=== PATIENT | female | born 1955 | race African-American/Black ===

== ENCOUNTER → 2016-07-04 | Outpatient (CLI) | payer OTHER ==
[~2016-07-04] MED LIST: IOHEXOL 180 MG/ML 10 ML VIAL. ONE; LIOT5TAB3 PO; METF500T4 PO; MULT-98 PO; PROG200C2 PO; THYR65TA PO; methylPREDNISolone ACETATE 40 MG/ML VIAL. ONE; methylPREDNISolone ACETATE 80 MG/ML VIAL. ONE
--- NOTE | 2016-07-05 00:48 | PAIN ---
DATE OF SERVICE: 07/04/2016 INITIAL CONSULTATION CHIEF COMPLAINT: Neck and left upper extremity pain. HISTORY OF PRESENT ILLNESS: This is a 61-year-old female who presents with history of pain for about 2 months, increasing gradually in the base of the neck and shoulders after she was lifting a heavy box while helping a friend do some moving, the box was very heavy. She reports she had significant pain at the time of the injury occurred and has been present ever since. The patient reports it is slightly better after some chiropractic manipulations that she had and her neck is more mobile now, but still significant pain in the base of the neck, left shoulder, left upper back, left upper arm, forearm and into the hand with tingling mostly in the 1st and 2nd fingers. The patient reports it is sharp and throbbing, numbness radiating into the left arm. No radiation onto the right arm. It is intermittent in intensity, but always present. The patient reports it does not awaken her from sleep at night, however, does not affect any bowel or bladder control and does not affect her ability to walk. The patient reports that it is a more of a tingling and numbness now. The pain is less as it was previously. The patient reports disability rating from 0 to 10, 10 being the worst, is a 6 with family and home responsibilities, social activity, occupation and self care, 8 with recreation, 7 with life support activities, 2 with sexual behavior. The patient did try Medrol Dosepak from her primary physician, which helped while she took it, but was not long lasting. She did have an MRI scan of the cervical spine dated 06/16/2016 showing degenerative changes without specific herniations or central spinal stenosis, some neural foraminal stenosis seen at C4-C5 with moderate left side articular facet disease. C5-C6 has a small broad-based disk bulge and some left-sided neural foraminal narrowing as well, C6-C7 also moderate sized broad-based disk bulge with associated neural foraminal narrowing and bilateral uncovertebral disease as well. The patient reports no complete loss of motor function, but some fatigability with left arm with repetitive use of motion or typing, but no loss of function. PAST MEDICAL HISTORY: Significant for type 2 diabetes, cigarette smoking, hypercholesterolemia, diverticulitis, arthritis. PREVIOUS SURGERY: Includes thyroidectomy. CURRENT MEDICATIONS: Include levothyroxine, metformin, progesterone, multivitamins, and natural thyroid supplements. ALLERGIES: The patient has no known drug allergies. FAMILY HISTORY: Significant for diabetes. SOCIAL HISTORY: The patient drinks about 1 alcoholic beverage a day, smokes about 5 cigarettes a day and has for 11 years. The patient is single, lives locally in [place], [place] and works as a computer lab assistant. REVIEW OF SYSTEMS: The patient's review of systems is positive for those items mentioned in history of present illness. All systems are reviewed and otherwise negative. It is complete, full and well documented on the patient's chart. PHYSICAL EXAMINATION: VITAL SIGNS: Today, the patient's blood pressure is 102/70, pulse 71, respirations 18, temperature 98.6 degrees Fahrenheit, height is 5 feet 1 inch, weight is 129 pounds. GENERAL: The patient is awake, alert, oriented, appropriate, very pleasant demeanor. HEENT: Shows normocephalic, atraumatic. Extraocular movements are intact and symmetrical. Oral cavity shows mucous membranes moist and pink. Dentition is intact. NECK: Shows anterior throat supple without palpable lymphadenopathy noted. Swallow reflex is symmetrical. CHEST: Shows normal on inspection. Breath sounds are clear to auscultation bilaterally. HEART: Shows S1 and S2 clear. ABDOMEN: Soft, nontender, nondistended. No palpable organomegaly is noted. No rebound or guarding demonstrated. BACK: The patient's back shows spine grossly midline. Cervical paraspinous musculature shows normal cervical lordotic curvature, normal thoracic kyphotic curvature, and lumbar lordotic curvature. No previous bruises, lesions, rashes or scars are noted. Cervical paraspinous musculature shows some moderate tenderness with palpation in the middle and lower aspect of the posterior cervical musculature on the left more than the right, but is symmetrical. The patient shows good rotational motion both laterally greater than 45 degrees right and left as well as full extension, full forward flexion with some minor pain reported in the base of the neck with extension, but not with forward flexion or right and left lateral rotation. EXTREMITIES: The patient's upper extremities show deep tendon reflexes at 2+ in the biceps and triceps tendons are equal. Motor exam is strong with brim edge trimmer strength rated at 5/5 as is biceps and triceps flexion are strong and equal. Peripheral pulses are 2+ radial distribution. No peripheral edema is noted. No clubbing, no cyanosis. Upper extremities are warm and dry to touch, equal in color and appearance. Shoulder shrug is strong and intact without loss of strength on resistance with some minor pain reported in the base of the neck and left posterior shoulder with resistance, but no loss of strength. This is true with abduction of the shoulder to 90 degrees as well. Minor pain reported in the posterior aspect of the deltoid and the scapula with resistance, but without loss of strength. IMPRESSION: 1. This is a 61-year-old female with approximate 2-month history of pain after lifting heavy objects while moving a friend with significant radicular qualities in left upper extremity at this time. 2. MRI scan as noted. 3. Type 2 diabetes. 4. Cigarette smoking. 5. Arthritis. PLAN: Options were discussed with the patient including conservative medical management, physical therapy, interventional techniques. She elected to proceed with interventional techniques. We discussed a cervical epidural steroid injection using description as well as anatomical models to describe the procedure. Risks were then discussed including, but not limited to bleeding, infection, possibility of epidural hematoma, subsequent neurologic compromise, dural puncture, headaches, spinal cord and/or nerve damage, side effects of steroid medication and poor results regarding pain control. The patient understands and wishes to proceed. The patient will return to clinic in approximately 2 weeks for followup, was counseled on return appointment, activity level and side effects to be aware of. DIAGNOSIS: Cervical radiculopathy with cervical degenerative disk disease. PROCEDURE: Cervical epidural steroid injection in the translaminar approach at C6-C7 level using fluoroscopic guidance and local anesthetic under sterile prep and drape. Medication injected is 120 mg Depo-Medrol plus 5 mL of preservative-free normal saline and 2 mL Isovue for contrast. Condition at discharge is stable. The patient tolerated procedure well, had no complications. JUSTIN FU MD DR: AIDA/miguel ángel JOB#: [id number] / [id number] Jassi Howell
== END | disposition home or self-care (01) ==
LOC: PNCL 10:15
PROVIDERS: ATTEND Anesthesiology
DX: M50.10 Cervical disc disorder with radiculopathy, unspecified cervical region (principal); E11.9 Type 2 diabetes mellitus without complications; F17.200 Nicotine dependence, unspecified, uncomplicated; M19.90 Unspecified osteoarthritis, unspecified site; E78.00 Pure hypercholesterolemia, unspecified
CPT/HCPCS: 62321; J1030; J1040

== ENCOUNTER → 2016-07-18 | Outpatient (CLI) | payer OTHER ==
[~2016-07-18] MED LIST changes: -IOHEXOL 180 MG/ML 10 ML VIAL. ONE; -methylPREDNISolone ACETATE 40 MG/ML VIAL. ONE; -methylPREDNISolone ACETATE 80 MG/ML VIAL. ONE
--- NOTE | 2016-07-19 01:40 | PAIN ---
DATE OF SERVICE: 07/18/2016 DIAGNOSES: Cervical radiculopathy with cervical degenerative disk disease. HISTORY OF PRESENT ILLNESS: This is a 61-year-old female who returns for followup status post cervical epidural steroid injection x 1. The patient reports about 60% improvement in the spasms in her left arm and only has some numbness in the tips of the fingers now on her left hand, mainly in the index and middle finger, but is doing much better. She is very pleased with her progress, is sleeping well at night, increased her activity with greater ease and comfort using her left arm with much more flexibility and much less discomfort. The patient reports her pain is 2 on a scale of 10 at its worse and has occasional spasm in the left arm in the biceps region, but only very occasionally. The patient reports no new motor or sensory deficits or other complaints. She is very pleased with her progress thus far. PHYSICAL EXAMINATION: VITAL SIGNS: Today, the patient's blood pressure is 102/69, pulse 80, respirations 18, temperature is 98.3 degrees Fahrenheit, height is 5 feet 1 inch, weight is 125 pounds. GENERAL: The patient is awake, alert, oriented, appropriate, very pleasant demeanor. HEENT: Head shows normocephalic, atraumatic. Extraocular movements are intact, symmetrical. Oral cavity, mucous membranes are moist and pink. NECK: Shows anterior throat supple without palpable lymphadenopathy noted. Swallow reflex is symmetrical. CHEST: Shows normal on inspection. Breath sounds are clear to auscultation bilaterally. HEART: Shows S1 and S2 clear. ABDOMEN: Shows normal on inspection soft, nontender, nondistended. BACK: Shows spine grossly midline. Cervical paraspinous muscle shows some moderate tenderness with palpation in the inferior aspect of the cervical paraspinous muscles, but appears roughly symmetrical. No evidence of atrophy or hypertrophy. The patient shows good rotation and motion both laterally as well as extension and flexion without significant pain reported on exam today. EXTREMITIES: Upper extremities show deep tendon reflexes 2+ in the biceps and triceps tendons. Motor exam is strong with philosophy specialist strength rated at 5/5 and equal bilaterally as is biceps and triceps flexion. Peripheral pulses are 2+ radial distribution. No peripheral edema is noted. No clubbing or cyanosis. PLAN: Options were discussed with the patient and the patient's old chart was reviewed as her current medication regimen and updated. Current review of systems updated today as well. We will hold on any further injections at this time as she would like to wait for any further treatment and increase her activity further with left upper extremity to see how this does with the pain and possible return. We discussed that if it does begin to return or getting worse by the day, progressing back to close to baseline, that she will return for a second cervical epidural steroid injection once at that time. Patient understands and agrees, counseled as to activity levels as well as warning signs of returning pain, numbness, tingling and motor loss and will return on an as needed basis at this time. JUSTIN FU MD DR: AIDA/miguel ángel JOB#: [id number] / [id number]
== END | disposition home or self-care (01) ==
LOC: PNCL 12:49
PROVIDERS: ATTEND Anesthesiology
DX: M50.10 Cervical disc disorder with radiculopathy, unspecified cervical region (principal)
CPT/HCPCS: 99212

== ENCOUNTER → 2017-11-28 | Day surgery (SDC) | payer OTHER ==
[~2017-11-28] MED LIST changes: +LIDOCAINE 1% PF 2 ML VIAL. ID; +LIDOCAINE 2% PF Vial for OR 5 ML VIAL.; -LIOT5TAB3 PO; -METF500T4 PO; +MORPHINE SULFATE 4 MG/ML DISP.SYRIN. IV; -MULT-98 PO; +ONDANSETRON PF 4 MG/2 ML VIAL. IV; +PROCHLORPERAZINE 10 MG/2 ML VIAL. IV; -PROG200C2 PO; +PROPOFOL 40 ML IV; -THYR65TA PO; +fentaNYL PF VIAL 100 MCG/2 ML VIAL IV
[2017-11-28] MEDS: IV RINGERS,LACTATED 1000ML 1,000 ML IV (09:40)
== END | disposition home or self-care (01) ==
LOC: ENDOS 09:06
DX: K57.30 Diverticulosis of large intestine without perforation or abscess without bleeding (principal); E78.00 Pure hypercholesterolemia, unspecified; Z79.84 Long term (current) use of oral hypoglycemic drugs; Z86.010 Personal history of colon polyps; E11.9 Type 2 diabetes mellitus without complications; E89.0 Postprocedural hypothyroidism; Z72.89 Other problems related to lifestyle; F17.200 Nicotine dependence, unspecified, uncomplicated
CPT/HCPCS: 45378; J2704